=== PATIENT | female | born 1955 | race Caucasian/White ===

== ENCOUNTER 2016-03-28 07:05 | Day surgery (SDC) | payer OTHER ==
[2016-03-23 13:21] VITALS: BMI 26.6
[2016-03-28] MEDS ORDERED: MIDAZOLAM HCL 2 MG/2 ML SINGLE DOSE VIAL ONE ×3 (08:51→11:00)
[2016-03-28] MEDS ORDERED: DEXAMETHASONE SOD PHOSPHATE/PF 10 MG/ML SDV ONE (08:51)
[2016-03-28] MEDS ORDERED: ROPIVACAINE HCL 0.5% 30ML VIAL ONE (08:51)
[2016-03-28] MEDS ORDERED: ceFAZolin SODIUM 1 GM VIAL ONE ×2 (09:14→09:15)
[2016-03-28] MEDS ORDERED: PROPOFOL 20 ML ONE ×2 (09:14→11:52)
[2016-03-28] MEDS ORDERED: SUCCINYLCHOLINE CHLORIDE 200 MG/10 ML VIAL ONE (09:14)
[2016-03-28] MEDS ORDERED: ONDANSETRON 4 MG/2 ML VIAL ONE ×2 (09:15→13:01)
[2016-03-28] MEDS ORDERED: KETOROLAC TROMETHAMINE 30 MG/1 ML VIAL ONE (09:15)
[2016-03-28] MEDS ORDERED: LIDOCAINE HCL/PF 2% SDV 5ML VIAL ONE (09:15)
[2016-03-28] MEDS ORDERED: LIDOCAINE HCL 2% JELLY (5 ML/TUBE) ONE (09:15)
[2016-03-28] MEDS ORDERED: DEXAMETHASONE SOD PHOSPHATE 4 MG/1 ML VIAL ONE (09:15)
[2016-03-28] MEDS ORDERED: ROCURONIUM BROMIDE 50 MG/5 ML VIAL ONE (09:16)
[2016-03-28] MEDS ORDERED: DESFLURANE GAS 240 ML BOTTLE IH ONE (09:29)
[2016-03-28] MEDS ORDERED: BUPIVACAINE HCL/PF 2.5 MG/ML - 30 ML VIAL IJ ONE (09:49)
[2016-03-28] MEDS ORDERED: ePHEDrine SULFATE 50 MG/1 ML AMPULE ONE (12:07)
[2016-03-28] MEDS ORDERED: ACETAMINOPHEN 325 MG TABLET (FP) PO PRN (13:32)
[2016-03-28] MEDS ORDERED: LACTATED RINGERS SOLUTION 1,000 ML IV SCH (13:45)
[2016-03-28 14:10] VITALS: TEMP 97.6
[2016-03-28 15:00] VITALS: BP 104/58; PULSE 82
[2016-03-28] MEDS ORDERED: oxyCODONE HCL 5 MG TABLET PO PRN ×2 (15:31)
[2016-03-28] MEDS ORDERED: ONDANSETRON 4 MG/2 ML VIAL IVPUSH PRN (15:31)
--- NOTE | 2016-03-28 20:25 | OP ---
DATE OF OPERATION: 03/28/2016 PREOPERATIVE DIAGNOSIS: Right shoulder rotator cuff rupture. POSTOPERATIVE DIAGNOSIS: Right shoulder rotator cuff rupture, biceps tendinopathy, impingement. PROCEDURE: Right shoulder arthroscopy with biceps tenotomy and debridement, subacromial decompression and repair of supraspinatus, infraspinatus and subscapularis. SURGEON: Bassam Wilson M.D. DIRECT MAIL MARKETER: Shannan Green, whose skillful assistance was necessary for the safe and timely performance of this procedure. Mr. Richards was able to provide assistance with manipulating instruments, driving the camera, and assisting in the insertion of orthopedic hardware. POSTOPERATIVE CONDITION: Stable. COMPLICATIONS: None. ANESTHESIA TYPE: Regional with sedation. IMPLANTS: SwiveLock anchors x5. INDICATION: This is a pleasant 60-year-old female who had suffered a fall and was unable to move her right shoulder afterwards. MRI demonstrated a full-thickness rotator cuff tear. Treatment options including nonoperative versus operative management were discussed. Operative management risks were discussed in detail including bleeding, infection, neurovascular injury, need for further surgery, postoperative pain and stiffness, re-rupture. We discussed medical risks such as heart attack, stroke, DVT, PE, and . The patient voiced understanding. We also reviewed the postoperative rehabilitation protocol which is both slow and demanding. Again, the patient voiced understanding and she elected to proceed. PROCEDURE: The patient was brought to the operating room after administration of a regional block in the preoperative holding area. While still awake, she was placed in the beach chair position. Care was taken to pad all the bony prominences and ensure that the patient was comfortable. The right upper extremity was then prepped and draped in the usual sterile fashion. Preoperative antibiotics were given and the usual timeout procedure was performed. At this point, a standard posterior viewing portal was marked along with the other bony landmarks. The portal was now incised using an 11 blade. The arthroscope was now passed into the joint and a diagnostic arthroscopy was performed. Examination of the glenohumeral joint demonstrated minimal arthritic change. There was some mild fraying of the labrum without tear on the anterior and inferior portions. Immediately, the biceps was seen to be significantly flattened with moderate to severe tendinosis. There was no tearing. The subscapularis was not visualized anteriorly and there was significant fraying at the base of the subscapularis insertion . The arthroscope was now passed superiorly, demonstrating a full-thickness tear of the rotator cuff with mild retraction. The arthroscope was now passed back into the joint . The posterior labrum was inspected and was unremarkable. A standard anterior superior portal was now established and using a combination of the shaver and the biter, the biceps was released. The stump was then smoothed down and debrided to a smooth surface. The free edge of the tendon, which was now retracted out of the joint, was debrided as well. The anterior inferior portal was now established under spinal needle localization. A 7-mm cannula was now placed. Utilizing the superior portal, tension was applied to the subscapularis tendon using a grasper. A suture passing Scorpion device was now used to pass a FiberLoop suture through the subscapularis and a barrel loop stitch was placed. This suture was now tensioned and a second barrel loop stitch was placed as well. Using the shaver, the subscapularis footprint was debrided down to bleeding bone. The sutures were now retrieved out the cannula. An anchor was loaded on. A punch was used to create a socket, and then the anchor was inserted, tensioning the sutures to restore the subscapularis to its anatomic footprint. The excess sutures were now cut. The arthroscope was now passed into the subacromial space. Here, significant fraying was seen about the undersurface of the acromion. Using electrocautery, the soft tissue was debrided off the undersurface of the acromion. A shaver as well as an Acromionizer bur were used to smooth out the undersurface of the acromion and create a better space for the rotator cuff. The rotator cuff itself was debrided of any loose fibers. The footprint was debrided down to a base of bleeding bone. A spinal needle was now used to localize an insertion portal for the anchor. This was then made with an 11 blade. The punch was now passed into the joint and the anterior medial row portal was punched and then inserted. This was repeated for a second posterior medial row anchor. The lateral portal was now established with a 7-mm cannula. A suture passing device was used to first retrieve sutures out the cannula and then pass the sutures anterior through the rotator cuff. This was then repeated posteriorly again. The individual strands were now cut and . They were then passed through a crossing pattern. They were loaded onto a lateral row anchor. This was then inserted, first anteriorly and then posteriorly, forming a crossing pattern and reducing the rotator cuff onto its anatomic footprint. The shoulder was passed through a range of motion and the rotator cuff repair was seen to be stable. Bone quality was moderate, especially at the anterior lateral anchor. At this point, the excess fluid was drained from the shoulder. The portals were sutured using 3-0 nylon. Sterile dressings were placed. The patient was placed into a sling. She was transferred to recovery room in stable condition. Leatha [id number] MTDD
== END 2016-03-28 15:02 | disposition home or self-care (01) ==
LOC: FASU 07:05
PROVIDERS: ATTEND Orthopaedic Surgery Sports Medicine
PROC: 0LN14ZZ Release Right Shoulder Tendon, Percutaneous Endoscopic Approach (ICD-10-PCS; 2016-03-28)
PROC: 0LB14ZZ Excision of Right Shoulder Tendon, Percutaneous Endoscopic Approach (ICD-10-PCS; principal; 2016-03-28 09:00)
PROC: 0MN14ZZ Release Right Shoulder Bursa and Ligament, Percutaneous Endoscopic Approach (ICD-10-PCS; 2016-03-28 09:00)
DX: M75.121 Complete rotator cuff tear or rupture of right shoulder, not specified as traumatic (principal); M75.21 Bicipital tendinitis, right shoulder; M75.41 Impingement syndrome of right shoulder
CPT/HCPCS: 94760